=== PATIENT | female | born 1955 | race Caucasian/White ===

== ENCOUNTER 2016-06-24 10:24 | Day surgery (SDC) | payer OTHER, MEDICARE ==
[~2016-06-24] VITALS: Ht 170.2 cm; Wt 91.0 kg
[2016-06-24] VITALS (21 sets, daily range): BP systolic 119–158; BP diastolic 60–97; PULSE 62–74; RESP 8–23; Ht 170.2 cm; Wt 91.0 kg
[~2016-06-24 10:24] MED LIST: BUSP15TA3 PO; CHOL20002 PO; CLON0.5T4 PO; CRES10 PO; DEXL60CA2 PO; GABA300C16 PO; LEVO175T6 PO; LUN2 PO
[2016-06-24] MEDS ORDERED: ASPI-799 PO (11:22)
[2016-06-24] MEDS ORDERED: ATOR40TA68 PO (11:31)
[2016-06-24] MEDS ORDERED: SERT-165 PO (11:31)
[2016-06-24] MEDS ORDERED: CEFT1FRO2 IV (11:31)
[2016-06-24] MEDS ORDERED: SYN1 PO (11:31)
[2016-06-24] MEDS ORDERED: ALPR0.5T6 PO (11:31)
[2016-06-24] MEDS ORDERED: QUET100T32 PO (11:31)
[2016-06-24] MEDS ORDERED: PANT40TA4 PO (11:31)
[2016-06-24] MEDS ORDERED: CARSR60 PO (11:31)
[2016-06-24] MEDS ORDERED: FURO20TA3 PO (11:31)
[2016-06-24] MEDS ORDERED: FER325 PO (11:31)
[2016-06-24] MEDS ORDERED: ISOS20TA19 PO (11:31)
[2016-06-24] MEDS ORDERED: ALBU2.5V3 NEB (11:31)
[2016-06-24] MEDS ORDERED: CALC600T11 PO (11:31)
[2016-06-24] MEDS ORDERED: IODIXANOL LOCM 100 ML BTL ONE (12:40)
[2016-06-24] MEDS ORDERED: HEPARIN 1000 UNITS/ML 10 ML INJ ONE (12:40)
[2016-06-24] MEDS ORDERED: LIDOCAINE 1% (MDV) 20 ML INJ ONE (12:40)
[2016-06-24] MEDS ORDERED: NITROGLYCERIN (IC) 100 MCG/ML INJ ONE (12:41)
[2016-06-24] MEDS ORDERED: FENTAnyl 50 MCG/ML VIAL ONE (12:41)
[2016-06-24] MEDS ORDERED: VERAPAMIL 5 MG INJ ONE ×2 (12:41→12:46)
[2016-06-24] MEDS ORDERED: SOD CHLORIDE 0.9% 500 ML ONE (12:41)
[2016-06-24] MEDS ORDERED: MIDAZOLAM 1 MG/ML 2 ML INJ ONE (12:41)
[2016-06-24] MEDS ORDERED: ONDANSETRON 4 MG INJ IV PRN ×2 (14:00→14:30)
[2016-06-24] MEDS ORDERED: ACETAMINOPHEN 325 MG TAB PO PRN ×2 (14:00→14:30)
[2016-06-24] MEDS ORDERED: SOD CHLORIDE 0.9% 1,000 ML IV SCH (14:00)
[2016-06-24] MEDS ORDERED: morphine 2 MG INJ IV PRN ×2 (14:00→14:30)
[2016-06-24] MEDS ORDERED: AL HYDROX/MG HYDROX/SIMETH 30 ML CUP PO PRN ×2 (14:00→14:30)
--- NOTE | 2016-06-24 18:46 | CARRPT ---
DATE OF PROCEDURE: 06/24/2016 TYPE OF PROCEDURE: 1. Left heart catheterization. 2. Coronary angiography. 3. Measurement of left ventricular end diastolic pressure. ATTENDING PHYSICIAN: Fred Inman MD REFERRING PHYSICIAN: ____ and Loc Yu MD INDICATION: Dyspnea on exertion, abnormal cardiac stress test revealing anterior apical ischemia. TYPE OF ANESTHESIA: Conscious and local. BRIEF HISTORY AND HOSPITAL COURSE: Ms. Love is a 61-year-old female with history of hypertension , dyslipidemia, chronic obstructive pulmonary disease, ongoing tobacco usage, who initially presente d with complaints of dyspnea on exertion. The patient subsequently underwent a 2D echo revealing a preserved EF and was ruled out for myocardial infarction. The patient underwent cardiac stress test revealing a preserved EF, but anteroapical ischemia. Given these findings, the patient referred fo r and presents today in order to undergo left heart catheterization to assess for the possibility of significant obstructive coronary artery disease lending to symptoms of chest pain and subsequent po sitive stress test findings. PROCEDURE: After informed consent was obtained, the patient was brought to the [facility] cardiac catheterization lab where her right radial area was prepped and draped in usual michael rile fashion. Lidocaine 2% was infiltrated into the right radial area in order to achieve adequate anesthesia. Using modified Seldinger technique, the right radial artery was cannulated and a 6-Fren ch arterial sheath was placed. A 6-Kinyarwanda JL3.5 catheter was used to cannulate the left main carrera ry ostium. With contrast injection, multiple views of the left coronary arterial system were obtain ed. JL3.5 removed over the guidewire and a JR4 was used to cannulate the right coronary arterial os tium. With contrast injection, multiple views of the right coronary system were obtained. JL4 was removed over a guidewire and a 6-Kinyarwanda pigtail was passed down the ascending aorta into the left ve ntricle where left ventricular end-diastolic pressure was measured. It was then pulled back across the aortic valve to assess for significant gradient, which there was none, and removed. Subsequentl y, this completed the procedure. The patient's radial sheath was removed and TR band applied. Ther e were no noted complications. FINDINGS: 1. Coronary angiography: Left main 4.5 mm, no significant stenoses. Circumflex proximally is a 3 mm vessel, no significant focal stenoses. There is a mid branching obtuse marginal, a 3 mm vessel w ith a mid body 20% tubular stenosis. The LAD proximally is a 4 mm vessel and in its mid portion has approximately a 40% stenosis. There is a proximal branching diagonal, 2 mm, no significant focal s tenoses. The right coronary artery proximally is a 4 mm vessel and has no significant focal stenosi s throughout its entirety. It is dominant vessel, gives off a 3 mm PDA and a 3 mm posterolateral br anch, each with no significant focal stenoses. TOTAL FLUOROSCOPY TIME: 3.5 minutes. TOTAL CONTRAST: 30 mL. IMPRESSION: 1. Moderate to nonobstructive coronary artery disease. 2. High normal left heart filling pressures with left ventricular diastolic pressure of 27. 3. No significant aortic stenosis by gradient. RECOMMENDATIONS: At this time, in light of the procedure findings would: 1. Maximize medical management. 2. Aggressive risk factor reduction. 3. The patient will be readmitted through the same day surgery center with probable transfer back [facility] this afternoon. ADDENDUM: Measurement of left ventricular diastolic pressure of 26, 27. No significant aortic sten osis by gradient. No LV gram undertaken due to elevated LVEDP. Dictated By: FRED STALLINGS/MINOR Conf#: [id number] DID#: [id number] CC: Alfreda Graham; LOC YU MD;*End*
== END 2016-06-24 17:24 | disposition hospice, inpatient (51) ==
LOC: SDS 10:24
PROVIDERS: ATTEND Internal Medicine
DX: I25.10 Atherosclerotic heart disease of native coronary artery without angina pectoris (principal); R94.39 Abnormal result of other cardiovascular function study; I10 Essential (primary) hypertension; E03.9 Hypothyroidism, unspecified; F41.8 Other specified anxiety disorders
CPT/HCPCS: 93458; C1769; C1887; J1644; J2250; J3010; J7040; Q9967

== ENCOUNTER 2016-08-16 14:24 | Observation (INO) | payer MEDICARE, OTHER ==
[~2016-08-16] VITALS: Ht 170.2 cm; Wt 92.5 kg
[~2016-08-16 14:24] MED LIST changes: +ALBU2.5V3 NEB; +ALPR0.5T6 PO; +ASPI-799 PO; +ATOR40TA68 PO; -BUSP15TA3 PO; +CALC600T11 PO; +CARSR60 PO; +CEFT1FRO2 IV; -CHOL20002 PO; -CLON0.5T4 PO; -CRES10 PO; -DEXL60CA2 PO; +FER325 PO; +FURO20TA3 PO; +ISOS20TA19 PO; +PANT40TA4 PO; +QUET100T32 PO; +SERT-165 PO; +SYN1 PO
[2016-08-16] MEDS ORDERED: FUROSEMIDE 40 MG INJ IV STA (15:37)
[2016-08-16 16:01] LABS: ADD SCAN DIFF NO
[2016-08-16 16:02] LABS: BASOPHILS % 0.2 % (0.0-2.0); EOSINOPHILS # 0.1 10^3/ul (0.0-0.5); EOSINOPHILS % 1.3 % (0.0-7.0); HEMATOCRIT 38.9 % (37.0-47.0); HEMOGLOBIN 12.1 g/dl (12.0-16.0); LYMPHOCYTES % 30.4 % (15.0-51.0); MEAN CORPUSCULAR HEMOGLOBIN 26.4 pg (29.0-33.0); MEAN CORPUSCULAR HGB CONC 31.1 g/dl (32.0-37.0); MEAN CORPUSCULAR VOLUME 84.9 fl (82.0-101.0); MONOCYTE # 0.8 10^3/ul (0.3-0.9); MONOCYTES % 8.4 % (0.0-11.0); NEUTROPHIL # 5.9 10^3/ul (1.6-7.5); NEUTROPHILS % 59.6 % (39.0-77.0); PLATELET COUNT 392 10^3/UL (140-415); RED BLOOD COUNT 4.58 10^6/ul (4.20-5.40); RED CELL DISTRIBUTION WIDTH 17.3 % (11.5-14.5)
[2016-08-16 16:21] LABS: ALBUMIN 3.7 g/dl (3.3-4.9); CHLORIDE 106 mmol/L (97-110); POTASSIUM 3.6 mmol/L (3.5-5.1); SODIUM 142 mmol/L (135-144)
[2016-08-16 16:23] LABS: ANION GAP 14 (8-16); BILIRUBIN,INDIRECT 0.5 mg/dl (0-1.1); BILIRUBIN,TOTAL 0.5 mg/dl (0.2-1.3); CARBON DIOXIDE 26 mmol/L (21-31); CREATININE 0.78 mg/dl (0.44-1.00)
[2016-08-16 16:24] LABS: ALANINE AMINOTRANSFERASE 49 IU/L (13-69); ALBUMIN/GLOBULIN RATIO 1.19; ALKALINE PHOSPHATASE 85 IU/L (42-121); ASPARTATE AMINO TRANSFERASE 25 IU/L (15-46); BLOOD UREA NITROGEN 17 mg/dl (7-20); GLUCOSE 103 mg/dl (70-220); TOTAL PROTEIN 6.8 g/dl (6.1-8.1)
[2016-08-16] MEDS ORDERED: FER325 PO (16:26)
[2016-08-16] MEDS ORDERED: LEVO125T75 PO (16:27)
[2016-08-16] MEDS ORDERED: LEVO150T67 PO (16:27)
[2016-08-16] MEDS ORDERED: SERT-165 PO (16:28)
[2016-08-16] MEDS ORDERED: OMEP40CA6 PO (16:29)
[2016-08-16] MEDS ORDERED: POTA10TA37 PO (16:35)
[2016-08-16] MEDS ORDERED: DICL75TA2 PO (16:35)
--- NOTE | 2016-08-16 16:45 | RADRPT ---
PROCEDURE: XR Chest. CLINICAL INDICATION: Chest Pain. TECHNIQUE: Single frontal chest x-ray. COMPARISON: None. FINDINGS: The lungs are clear of acute infiltrates, edema, effusions, or masses.. Cardiomegaly is present.. T he osseous structures are intact. IMPRESSION: No acute cardiopulmonary disease. Cardiomegaly. RPTAT: HH .Cooper Hare MD, MD Date Time Electronically viewed and signed by .Cooper Hare MD, MD on 08/16/2016 16:45 .L/
[2016-08-16 16:50] LABS: B-TYPE NATRIURETIC PEPTIDE 190 PG/ML (0-125)
[2016-08-16 16:56] LABS: TROPONIN-I < 0.012 ng/ml (0.00-0.12)
--- NOTE | 2016-08-16 17:30 | CONS ---
DATE OF ADMISSION: 08/16/2016 DATE OF CONSULTATION: 08/16/2016 REASON FOR CONSULTATION: Lower extremity edema, assess for congestive heart failure, shortness of b reath. REQUESTING PHYSICIAN: Emergency department, Dr. Pacheco. HISTORY OF PRESENT ILLNESS: Ms. Love is a 61-year-old female well known to myself from prior h ospital admissions, primary office patient with a history of dyslipidemia, congestive heart failure with preserved left ventricular ejection fraction by echo June 2016, coronary artery disease, nonob structive by catheterization in June 2016, hypothyroidism, psychiatric disorder, who presents with complaints of worsening lower extremity edema for approximately 2 to 3 weeks, associated shortness o f breath and possible symptoms of orthopnea. Upon arrival in the emergency department, temperature 98.1, blood pressure 144/70, pulse 90, respiratory rate 18, saturating 95%. The patient's labs reve aled white count 10, hemoglobin 12.1, platelet count 392. Sodium 142, potassium 3.6, creatinine 0.7 , BUN 17. Troponin negative. BNP of 190. The patient underwent a chest x-ray revealing no acute c ardiopulmonary disease or cardiomegaly. The patient was treated with Lasix 40 mg IV x1 and now awai ts admit to the hospital. The patient at this time denies chest pain, palpitations, syncope. PAST MEDICAL HISTORY: As above in HPI. MEDICATIONS PRIOR TO ADMIT: 1. Ferrous sulfate. 2. Atorvastatin 40 mg at bedtime. 3. Isordil 20 mg p.o. t.i.d. 4. Xanax p.r.n. 5. Diclofenac. 6. Seroquel. 7. Zoloft 20 mg daily. 8. Lasix 20 mg daily. 9. Potassium chloride 10 mEq daily. 10. Omeprazole 40 mg daily. 11. Synthroid 150 mcg daily. ALLERGIES: NO KNOWN DRUG ALLERGIES. SOCIAL HISTORY: No tobacco, ETOH or illicit drug use. FAMILY HISTORY: No history of sudden cardiac or early CAD. REVIEW OF SYSTEMS: As above in HPI. CONSTITUTIONAL: No fevers, chills. PULMONARY: Shortness of breath. CARDIOVASCULAR: History of congestive heart failure. GASTROINTESTINAL: No vomiting. GENITOURINARY: No hematuria. MUSCULOSKELETAL: Degenerative joint disease. PSYCHIATRIC: The patient denies depression. NEUROLOGIC: No documented history of CVA. PHYSICAL EXAMINATION VITAL SIGNS: Temperature of 98.1, blood pressure 144/70, pulse 90, respiratory rate 18, saturating 95%. GENERAL: The patient is alert, awake, in no acute distress. NECK: JVP approximately 9 cm of water. CHEST: Fair air movement throughout. HEART: Regular rate and rhythm. Normal S1, S2, I/ systolic murmur, nondisplaced PMI. ABDOMEN: Positive bowel sounds, soft. EXTREMITIES: 1 to 2+ edema bilaterally at the ankles, 1+ pulses bilaterally, posterior tibial. LABORATORY DATA: As above in HPI. No further labs for my review at this time. IMAGING STUDIES: As above in HPI. No further imaging studies for my review at this time. ECG: Reveals normal sinus rhythm, rate of 88, normal axis, normal intervals, isolated Q in III. IMPRESSION: 1. Lower extremity edema, assess for congestive heart failure. 2. Shortness of breath, assess for congestive heart failure. 3. Coronary artery disease, nonobstructive by catheterization in June 2016. 4. History of congestive heart failure with preserved left ventricular ejection fraction by echo [facility] 2016. 5. Psychiatric disorder. 6. Hypothyroidism. RECOMMENDATIONS: 1. At this time, would admit patient to telemetry monitoring to follow rhythm and rate control clos adriana. 2. Would initiate the patient on standing Lasix diuresis, following strict I's and O's, creatinine to grade diuresis closely. 3. Check a lower extremity venous ultrasound to rule out any DVT that may be associated with any lo wer extremity edema. 4. Would check serial EKGs, assess for ongoing changes and complete a rule out for myocardial infar ction, assure the patient's EKG abnormalities are chronic in nature and not due to any recent acute coronary syndrome lending to lower extremity edema, possible congestive heart failure. 5. Check a BNP to further assess patient's current volume status and will initiate patient on a low dose NIA inhibitor for afterload reduction. Thank you for allowing me to take part in the care of this patient. I will continue to follow her v robb closely with you with further recommendations to be made as the patient progresses through her i npatient hospital course. Dictated By: FRED STALLINGS/MINOR Conf#: [id number] DID#: [id number] CC: BOB PACHECO DO;*End*
--- NOTE | 2016-08-16 18:18 | ERA ---
ER Documentation Chief Complaint Date/Time DATE: 08/16/16 TIME: 18:14 Chief Complaint B/L LEG SWELLING X 2 WEEKS , SOB ON EXERTION HPI This is a 61-year-old female complains of bilateral lower extremity swelling over the past 2-3 weeks after hospital admission and cardiac catheterization that resulted in diffuse coronary artery disease with a normal ejection fraction at that time. She says since she has been home she is having worsening of bilateral lower extremity edema with some dyspnea on exertion and starting to get orthopnea. Patient has COPD and has a chronic cough. She has no chest pain on exertion or at rest. She has no pain in her calves no sudden shortness of breath no palpitations dizziness or syncope. Her thermoscrew operator is Dr. Inman ROS All systems reviewed and are negative except as per history of present illness. Medications Home Meds Reported Medications Diclofenac Sodium* (Diclofenac Sodium*) 75 Mg Tablet.dr, 75 MG PO BID, #60 TAB 08/16/16 Potassium Chloride* (K-Dur*) 10 Meq Tab.prt.sr, 10 MEQ PO DAILY, TAB 08/16/16 Omeprazole* (Omeprazole*) 40 Mg Capsule.dr, 40 MG PO AC BREAKFAST, #30 CAP 08/16/16 Sertraline Hcl* (Sertraline Hcl*) 100 Mg Tablet, 200 MG PO DAILY, #60 TAB 08/16/16 Levothyroxine Sodium* (Levothyroxine Sodium*) 125 Mcg Tablet, 125 MCG PO BEFORE BREAKFAST, #30 TAB 08/16/16 Levothyroxine Sodium* (Levothyroxine Sodium*) 150 Mcg Tablet, 150 MCG PO BEFORE BREAKFAST, #30 TAB 08/16/16 Ferrous Sulfate* (Ferrous Sulfate*) 325 Mg Tabec, 325 MG PO QID, TAB 08/16/16 Alprazolam* (Alprazolam*) 0.5 Mg Tablet, 0.5 MG PO QHS Y for ANXIETY, TAB 06/24/16 Quetiapine Fumarate* (Quetiapine Fumarate*) 100 Mg Tablet, 100 MG PO HS, TAB 06/24/16 Isosorbide Dinitrate* (Isosorbide Dinitrate*) 20 Mg Tablet, 20 MG PO TID, TAB 06/24/16 Furosemide* (Furosemide*) 20 Mg Tablet, 20 MG PO DAILY, #60 TAB 06/24/16 Atorvastatin* (Atorvastatin*) 40 Mg Tablet, 40 MG PO QHS, #30 TAB 06/24/16 Discontinued Reported Medications Albuterol Sulfate* (Albuterol Sulfate* Neb) 0.083%-3 Ml Neb, 2.5 MG NEB Q6, #30 VIAL 06/24/16 Pantoprazole* (Pantoprazole*) 40 Mg Tablet.dr, 40 MG PO DAILY, TAB 06/24/16 Levothyroxine Sodium* (Synthroid*) 100 Mcg Tablet, 200 MCG PO BEFORE BREAKFAST, #30 TAB 06/24/16 Diltiazem Hcl* (Cardizem SR*) 60 Mg Capsr, 30 MG PO Q8, #60 CAP 06/24/16 Ceftriaxone Na/Dextrose,Iso (Ceftriaxone 1 gm Piggyback) 1 Gm/50 Ml Froz.piggy, 1 GM IV Q24 06/24/16 Calcium Carbonate* (Calcium Carbonate*) 600 MG Ca Tab, 500 MG PO, TAB 06/24/16 Aspirin/Calcium Carbonate/Mag (Aspirin Buffered) 325 Mg Tablet, 325 MG PO DAILY , TAB 06/24/16 Eszopiclone (Lunesta) 2 Mg Tab, 2 MG PO HS Y 08/11/12 Levothyroxine Sodium* (Levothyroxine Sodium*) 175 Mcg Tablet, 175 MCG PO DAILY 08/11/12 Gabapentin* (Gabapentin*) 300 Mg Capsule, 900 MG PO TID 08/11/12 Allergies Allergies: Coded Allergies: No Known Allergy (Unverified , 06/24/16) PMhx/Soc Anesthesia Reaction: No Hx Neurological Disorder: No Hx Respiratory Disorders: Yes (COPD) Hx Cardiac Disorders: Yes (HTN, HYPERLIPIDEMIA) Hx Psychiatric Problems: No Hx Miscellaneous Medical Probl: No Hx Alcohol Use: No Hx Substance Use: No Hx Tobacco Use: Yes (HALF A PACK/DAY) FmHx Family History: No coronary disease Physical Exam Vitals Vital Signs Date Time Temp Pulse Resp B/P Pulse Ox O2 Delivery O2 Flow Rate FiO2 08/16/16 15:59 Nasal Cannula 1 08/16/16 14:29 98.1 90 18 144/70 95 Physical Exam Const: Well-developed, well-nourished Head: Atraumatic, normocephalic Eyes: Normal Conjunctiva, PERRLA, EOMI, normal sclera, no nystagmus ENT: Normal External Ears, Nose and Mouth, moist mucus membranes. Neck: Full range of motion. No meningismus, no lymphadenopathy. Resp: Clear to auscultation bilaterally, no wheezing, rhonchi, rales Cardio: Regular rate and rhythm, no murmurs, S1 S2 present Abd: Soft, non tender x 4, non distended. Normal bowel sounds, no guarding or rebound, no pulsitile abdominal masses or bruits Skin: No petechiae or rashes, no ecchymosis , maculopapular rash to the bottom of both feet Back: No midline or flank tenderness Ext: No cyanosis, +3 edema to the midshin bilaterally, FROM x 4, normal inspection, neurovascularly intact x 4 Neur: Awake and alert, STR 5/5 x 4, sensation intact x 4, no focal findings, cerebellum intact Psych: Normal Mood and Affect Result Diagram: 08/16/16 1545 08/16/16 1545 Results 24 hrs Laboratory Tests Test 08/16/16 15:45 White Blood Count 10.010^3/ul Red Blood Count 4.5810^6/ul Hemoglobin 12.1g/dl Hematocrit 38.9% Mean Corpuscular Volume 84.9fl Mean Corpuscular Hemoglobin 26.4pg Mean Corpuscular Hemoglobin Concent 31.1g/dl Red Cell Distribution Width 17.3% Platelet Count 73425^3/UL Mean Platelet Volume 10.0fl Neutrophils % 59.6% Lymphocytes % 30.4% Monocytes % 8.4% Eosinophils % 1.3% Basophils % 0.2% Nucleated Red Blood Cells % 0.0/100WBC Neutrophils # 5.910^3/ul Lymphocytes # 3.010^3/ul Monocytes # 0.810^3/ul Eosinophils # 0.110^3/ul Basophils # 0.010^3/ul Nucleated Red Blood Cells # 0.010^3/ul Sodium Level 142mmol/L Potassium Level 3.6mmol/L Chloride Level 106mmol/L Carbon Dioxide Level 26mmol/L Anion Gap 14 Blood Urea Nitrogen 17mg/dl Creatinine 0.78mg/dl Glucose Level 103mg/dl Calcium Level 9.0mg/dl Total Bilirubin 0.5mg/dl Direct Bilirubin 0.00mg/dl Indirect Bilirubin 0.5mg/dl Aspartate Amino Transf (AST/SGOT) 25IU/L Alanine Aminotransferase (ALT/SGPT) 49IU/L Alkaline Phosphatase 85IU/L Troponin I < 0.012ng/ml B-Type Natriuretic Peptide 190PG/ML Total Protein 6.8g/dl Albumin 3.7g/dl Globulin 3.10g/dl Albumin/Globulin Ratio 1.19 Current Medications Medications (Trade) Dose Ordered Sig/Joyce Route PRN Reason Start Time Stop Time Status Last Admin Dose Admin Furosemide (Lasix) 40 mg ONCE STAT IV 08/16/16 15:37 08/16/16 15:38 DC 08/16/16 15:51 Procedures/MDM EKG: Rate/Rhythm: Normal Sinus Rhythm,NL intervals QRS, ST, QT: NORMAL WA, QRS, QT] Impression: NORMAL EKG PROCEDURE: XR Chest. CLINICAL INDICATION: Chest Pain. TECHNIQUE: Single frontal chest x-ray. COMPARISON: None. FINDINGS: The lungs are clear of acute infiltrates, edema, effusions, or masses.. Cardiomegaly is present.. The osseous structures are intact. IMPRESSION: No acute cardiopulmonary disease. Cardiomegaly. RPTAT: HH .Cooper Hare MD, MD Date Time Electronically viewed and signed by .Cooper Hare MD, MD on 08/16/2016 16:45 .L/ CC: ZACHARIAHDAWNABOB DO Patient received 40 mg of IV Lasix. She was seen by Dr. Inman in the emergency department. I will admit the patient for workup for congestive heart failure. No signs of liver or renal disease currently. Spoke with Dr. Levin for admission Departure Diagnosis: Primary Impression: Pedal edema Additional Impression: Dyspnea on exertion Condition: Stable BOB FARIA DO Aug 16, 2016 18:17
[2016-08-16] MEDS ORDERED: ONDANSETRON 4 MG INJ IV PRN (18:30)
[2016-08-16] MEDS ORDERED: ACETAMINOPHEN 325 MG TAB PO PRN (18:30)
--- NOTE | 2016-08-16 18:34 | RADRPT ---
PROCEDURE: US bilateral lower extremity veins. CLINICAL INDICATION: Bilateral leg pain and swelling. TECHNIQUE: Multiple longitudinal and transverse images of the bilateral lower extremity veins were obtained with fernando scale and color Doppler imaging. The common femoral vein, femoral vein, and popl iteal vein were evaluated. 2D grayscale measurements with compression sonography, color Doppler, and pulsed Doppler with augmentation. COMPARISON: No prior studies are available for comparison. FINDINGS: The bilateral common femoral, femoral and popliteal veins are normally compressible throughout. Col or flow demonstrates normal filling of the vessels. Normal waveforms are visualized and there is no rmal response to augmentation. IMPRESSION: 1. No evidence of deep vein thrombosis involving either lower extremity. RPTAT: QQ .Arnaud Brennan MD, MD Date Time Electronically viewed and signed by .Arnaud Brennan MD, on 08/16/2016 18:34 .R/
[2016-08-16 22:07] VITALS: PULSE 79
[2016-08-16 22:35] VITALS: Ht 170.2 cm; Wt 92.5 kg
[2016-08-16 23:08] VITALS: BP 147/65; RESP 20
[2016-08-17] VITALS (12 sets, daily range): BP systolic 120–145; BP diastolic 56–74; PULSE 70–82; RESP 17–20
[2016-08-17] MEDS ORDERED: hydrALAzine 20 MG INJ IV PRN (00:30)
--- NOTE | 2016-08-17 03:20 | HP ---
DATE OF ADMISSION: 08/16/2016 CHIEF COMPLAINT: Lower extremity swelling and shortness of breath. 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 She denied any chest pain, orthopnea, or PND. No nausea, vomiti ng, fever, or chills. She stated she has been compliant with her medications, including 20 mg Lasix that she has been taking daily. The patient had a left heart catheterization in June of this year with a finding of moderate nonobstructive coronary artery disease. Her ejection fraction was prese rved. When the patient presented to the ER, blood pressure was 144/70, heart rate 90, respiratory rate 18, temperature 98.1, oxygen saturation 95% on room air. Chest x-ray shows cardiomegaly but otherwise clear lungs. Her basic labs were within acceptable range. The patient has already been seen by Dr. Inman, her blender snuff. The patient also had a lower extremity venous study, and she was ruled out for DVT. She was given 40 mg of IV Lasix while she was in the ER. REVIEW OF SYSTEMS: A 12-point review was performed and negative except as mentioned in HPI. PAST MEDICAL HISTORY: As per HPI. SOCIAL HISTORY: Denied a history of tobacco, alcohol, or illicit drug use. ALLERGIES: NO KNOWN DRUG ALLERGIES. HOME MEDICATIONS: 1. Ferrous sulfate. 2. Lipitor. 3. Isosorbide dinitrate. 4. Xanax. 5. Diclofenac. 6. Quetiapine. 7. Sertraline. 8. Furosemide. 9. Potassium. 10. Prilosec. 11. Synthroid. PHYSICAL EXAMINATION: VITAL SIGNS: Stable. GENERAL: No acute distress. She actually looks comfortable. HEENT: No obvious head deformity. Pupils are reactive to light. Extraocular muscles intact. CARDIOVASCULAR: Regular rate and rhythm. No extra sounds. LUNGS: Clear. ABDOMEN: Soft, nontender, nondistended. Positive bowel sounds. EXTREMITIES: She has 2+ bilateral lower extremity pitting edema. LABORATORY DATA: CBC and CMP within normal limits. IMAGING: Chest x-ray shows cardiomegaly, otherwise clear lungs. IMPRESSION: 1. Bilateral lower extremity pitting edema, likely congestive heart failure exacerbation. 2. History of nonobstructive coronary artery disease. 3. Hypothyroidism. 4. Hypertension. 5. Chronic obstructive pulmonary disease. 6. History of bladder cancer. 7. History of gastritis/gastroesophageal reflux disease. 8. History of depression/anxiety. PLAN: Continue telemetry monitoring. Continue IV diuresis. We will continue her home medications with adjustment as needed. The patient has already been seen by cardiology and will follow up recom mendations. The patient does have a history of COPD, but shortness of breath seems likely secondary to volume overloaded state and does not appear to be related to her COPD. The patient will receive breathing treatment as needed, and we will add steroid as needed based on clinical course. Further workup and management per clinical course. Dictated By: KASIA GATES/MINOR Conf#: [id number] DID#: [id number]
[2016-08-17] MEDS ORDERED: FUROSEMIDE 40 MG TAB PO ONE ×2 (10:00→17:00)
[2016-08-17] MEDS ORDERED: ALPRAZOLAM 0.5 MG TAB PO PRN (10:00)
--- NOTE | 2016-08-17 10:01 | PN ---
Date/Time of Note Date/Time of Note DATE: 08/17/16 TIME: 09:55 Assessment/Plan VTE Prophylaxis VTE Prophylaxis Intervention: heparin Lines/Catheters IV Catheter Type (from [facility]): Saline Lock Assessment/Plan Problems: (1) Osteoarthritis Status: Chronic Comment: Continue nonsteroidal anti-inflammatory drug. Adjust medications to compensate for fluid retention Qualifiers: Osteoarthritis location: multiple joints Osteoarthritis type: primary Qualified Code: M15.0 - Primary osteoarthritis involving multiple joints (2) Diastolic dysfunction with acute on chronic heart failure Status: Chronic Comment: This is a situation where I would use most cardioselective beta- jeannie possible to deal with the diastolic dysfunction (3) Acquired hypothyroidism Status: Chronic Comment: Continue levothyroxine replacement therapy (4) Hyperlipidemia Status: Chronic Comment: Noted statin therapy Qualifiers: Hyperlipidemia type: pure hypercholesterolemia Qualified Code: E78.00 - Pure hypercholesterolemia (5) Hemorrhoids Status: Chronic Comment: Noted no intervention necessary Qualifiers: Hemorrhoid type: first degree Qualified Code: K64.0 - First degree hemorrhoids (6) Gastroesophageal reflux disease Status: Chronic Comment: Noted continue proton pump inhibitor therapy Qualifiers: Esophagitis presence: with esophagitis Qualified Code: K21.0 - Gastroesophageal reflux disease with esophagitis (7) Obesity (BMI 30.0-34.9) Status: Chronic Comment: Counseled gently (8) Dysthymia (or depressive neurosis) Status: Chronic Comment: Continue medication therapy. Please note or modestly handicapped as the medication reconciliation done in the emergency room does not appear to be accurate. (9) COPD (chronic obstructive pulmonary disease) Status: Chronic Comment: The patient reports that she is on inhaler therapy even though this is not on the medication reconciliation. I will go ahead and put her on treatment as it makes sense that she has this. Please note I also suspect that in addition she has obstructive sleep apnea. Qualifiers: COPD type: unspecified COPD Qualified Code: J44.9 - Chronic obstructive pulmonary disease, unspecified COPD type Subjective 24 Hr Interval Summary Free Text/Dictation Charming Taj[place] woman lying in bed. She reports that she is feeling significantly better than when she came in. Constitutional: no complaints (Denies fevers chills or sweats) Eyes: no complaints ENT: no complaints Respiratory: no complaints (Shortness of breath resolved. We have not checked for dyspnea on exertion), other (Denies known snoring C exam) Cardiovascular: no complaints (No chest pain palpitations no PND) Gastrointestinal: no complaints Genitourinary: no complaints Neurologic: no complaints Exam/Review of Systems Vital Signs Vitals Vital Signs Date Time Temp Pulse Resp B/P Pulse Ox O2 Delivery O2 Flow Rate FiO2 08/17/16 08:05 81 08/17/16 07:51 97.9 18 139/63 95 08/16/16 22:54 Nasal Cannula 2.0 Exam Initially sleeping in bed snoring with apneic spells Constitutional: alert, oriented Neck: non-tender, supple Respiratory: clear to auscultation, normal air movement Cardiovascular: nl pulses, regular rate and rhythm Extremities: edema (2+ edema) Results Result Diagram: 08/16/16 1545 08/16/16 1545 Results 24 hrs Laboratory Tests Test 08/16/16 15:45 White Blood Count 10.0 Red Blood Count 4.58 Hemoglobin 12.1 Hematocrit 38.9 Mean Corpuscular Volume 84.9 Mean Corpuscular Hemoglobin 26.4 L Mean Corpuscular Hemoglobin Concent 31.1 L Red Cell Distribution Width 17.3 H Platelet Count 392 Mean Platelet Volume 10.0 Neutrophils % 59.6 Lymphocytes % 30.4 Monocytes % 8.4 Eosinophils % 1.3 Basophils % 0.2 Nucleated Red Blood Cells % 0.0 Neutrophils # 5.9 Lymphocytes # 3.0 H Monocytes # 0.8 Eosinophils # 0.1 Basophils # 0.0 Nucleated Red Blood Cells # 0.0 Sodium Level 142 Potassium Level 3.6 Chloride Level 106 Carbon Dioxide Level 26 Anion Gap 14 Blood Urea Nitrogen 17 Creatinine 0.78 Glucose Level 103 Calcium Level 9.0 Total Bilirubin 0.5 Direct Bilirubin 0.00 Indirect Bilirubin 0.5 Aspartate Amino Transf (AST/SGOT) 25 Alanine Aminotransferase (ALT/SGPT) 49 Alkaline Phosphatase 85 Troponin I < 0.012 B-Type Natriuretic Peptide 190 H Total Protein 6.8 Albumin 3.7 Globulin 3.10 Albumin/Globulin Ratio 1.19 Medications Medications Current Medications Hydralazine HCl (Apresoline) 10 mg Q4H PRN IV ELEVATED BLOOD PRESSURE>150; Start 08/17/16 at 00:30 Alprazolam (Xanax) 0.5 mg QHS PRN PO ANXIETY; Start 08/17/16 at 10:00 Atorvastatin Calcium (Lipitor) 40 mg QHS PO ; Start 08/17/16 at 21:00 Diclofenac Sodium (Voltaren) 75 mg BID PO ; Start 08/17/16 at 21:00 Ferrous Sulfate (Ferrous Sulfate (Ec)) 325 mg QID PO ; Start 08/17/16 at 13:00 Quetiapine Fumarate (Seroquel) 100 mg HS PO ; Start 08/17/16 at 21:00 Sertraline HCl (Zoloft) 200 mg DAILY PO ; Start 08/18/16 at 09:00 Furosemide (Lasix) 40 mg DAILY PO ; Start 08/18/16 at 09:00; Status UNV Furosemide (Lasix) 40 mg ONCE ONCE PO ; Start 08/17/16 at 10:00; Stop 08/17/16 at 10:01; Status UNV Spironolactone (Aldactone) 25 mg DAILY PO ; Start 08/17/16 at 10:00; Status UNV Salmeterol Xinafoate/ Fluticasone (Advair 250/50 Diskus) 1 inh BID INH ; Start 08/17/16 at 10:00; Status UNV Tiotropium [place] (Spiriva) 1 inh DAILY INH ; Start 08/17/16 at 10:00; Status UNV ISRRAEL TOM MD Aug 17, 2016 10:01
[2016-08-17] MEDS: TIOTROPIUM 18 MCG CAPSULE INHA DEV INH SCH (10:55)
[2016-08-17] MEDS: SPIRONOLACTONE 25 MG TAB PO SCH (10:55)
[2016-08-17] MEDS: METOPROLOL (XL) 25 MG TAB PO SCH (10:56)
[2016-08-17] MEDS: SALMETEROL/FLUTICASONE 250/50 INHA INH SCH ×2 (10:56→21:35)
[2016-08-17] MEDS: HEPARIN 5,000 UNIT/0.5 ML VIAL SC SCH ×2 (10:57→21:40)
[2016-08-17] MEDS ORDERED: ADV25050 INHALATION (11:52)
[2016-08-17] MEDS ORDERED: LEVO300T5 PO (11:52)
[2016-08-17] MEDS ORDERED: CHOL400T10 PO (11:52)
[2016-08-17] MEDS ORDERED: CHOL100062 PO (11:56)
[2016-08-17] MEDS: FERROUS SULFATE (EC) 325 MG TAB PO SCH ×3 (13:47→21:35)
--- NOTE | 2016-08-17 15:35 | CONS ---
Date/Time of Note Date/Time of Note DATE: 08/17/16 TIME: 15:28 Assessment/Plan Assessment/Plan Chief Complaint/Hosp Course IMPRESSION: 1. Lower extremity edema, assess for congestive heart failure.-improving with lasix diuresis 2. Shortness of breath, assess for congestive heart failure. 3. Coronary artery disease, nonobstructive by catheterization in June 2016. 4. History of congestive heart failure with preserved left ventricular ejection fraction by echo June 2016. Thus diastolic acute on chronic 5. Psychiatric disorder. 6. Hypothyroidism. 7.COPD-ongoing tobacco intake Recc: -Tele -serial ecg's -Continue lasix diuresis -Ok to continue BB for now but follow for any possible worsening resp status/ bronchospasm -Continue advair/spiriva and follow resp status closely Problems: Consultation Date/Type/Reason Admit Date/Time Aug 16, 2016 at 18:13 Initial Consult Date 08/17/2016 Type of Consultation: Cardiology Reason for Consultation CHF/Le edema Referring Provider: KASIA PAL MD Exam/Review of Systems Vital Signs Vitals Vital Signs Date Time Temp Pulse Resp B/P Pulse Ox O2 Delivery O2 Flow Rate FiO2 08/17/16 12:28 98.9 74 17 137/61 92 08/16/16 22:54 Nasal Cannula 2.0 Exam Review of Systems: CONSTITUTIONAL: No fevers, chills. PULMONARY: mild sob-improving CARDIOVASCULAR: No chest pain/palpitations GASTROINTESTINAL: No nausea/vomiting. GENITOURINARY: No hematuria/dysuria. MUSCULOSKELETAL: No myagias/arthalgias. PSYCHIATRIC: The patient denies depression. NEUROLOGIC: No weakness Constitutional: alert, oriented Psych: no complaints Head: normocephalic ENMT: mucosa pink and moist Neck: jvd (9 cm water), supple Respiratory: clear to auscultation Cardiovascular: regular rate and rhythm Gastrointestinal: non-tender, soft Musculoskeletal: muscle tone (normal) Extremities: edema (improved bilateral) Neurological: other (No focal deficits) Results Result Diagram: 08/16/16 1545 08/16/16 1545 Results 24 hrs Laboratory Tests Test 08/16/16 15:45 White Blood Count 10.0 Red Blood Count 4.58 Hemoglobin 12.1 Hematocrit 38.9 Mean Corpuscular Volume 84.9 Mean Corpuscular Hemoglobin 26.4 L Mean Corpuscular Hemoglobin Concent 31.1 L Red Cell Distribution Width 17.3 H Platelet Count 392 Mean Platelet Volume 10.0 Neutrophils % 59.6 Lymphocytes % 30.4 Monocytes % 8.4 Eosinophils % 1.3 Basophils % 0.2 Nucleated Red Blood Cells % 0.0 Neutrophils # 5.9 Lymphocytes # 3.0 H Monocytes # 0.8 Eosinophils # 0.1 Basophils # 0.0 Nucleated Red Blood Cells # 0.0 Sodium Level 142 Potassium Level 3.6 Chloride Level 106 Carbon Dioxide Level 26 Anion Gap 14 Blood Urea Nitrogen 17 Creatinine 0.78 Glucose Level 103 Calcium Level 9.0 Total Bilirubin 0.5 Direct Bilirubin 0.00 Indirect Bilirubin 0.5 Aspartate Amino Transf (AST/SGOT) 25 Alanine Aminotransferase (ALT/SGPT) 49 Alkaline Phosphatase 85 Troponin I < 0.012 B-Type Natriuretic Peptide 190 H Total Protein 6.8 Albumin 3.7 Globulin 3.10 Albumin/Globulin Ratio 1.19 Medications Medications Current Medications Hydralazine HCl (Apresoline) 10 mg Q4H PRN IV ELEVATED BLOOD PRESSURE>150; Start 08/17/16 at 00:30 Alprazolam (Xanax) 0.5 mg QHS PRN PO ANXIETY; Start 08/17/16 at 10:00 Diclofenac Sodium (Voltaren) 75 mg BID PO ; Start 08/17/16 at 21:00 Ferrous Sulfate (Ferrous Sulfate (Ec)) 325 mg QID PO Last administered on 13:47; Admin Dose 325 MG; Start 08/17/16 at 13:00 Quetiapine Fumarate (Seroquel) 100 mg HS PO ; Start 08/17/16 at 21:00 Sertraline HCl (Zoloft) 200 mg DAILY PO ; Start 08/18/16 at 09:00 Pantoprazole (Protonix Tab) 40 mg DAILY@06 PO ; Start 08/18/16 at 06:00 Furosemide (Lasix) 40 mg DAILY PO ; Start 08/18/16 at 09:00 Spironolactone (Aldactone) 25 mg DAILY PO Last administered on 08/17/16 10:55 ; Admin Dose 25 MG; Start 08/17/16 at 10:00 Salmeterol Xinafoate/ Fluticasone (Advair 250/50 Diskus) 1 inh BID INH Last administered on 08/17/16 10:56; Admin Dose 1 INH; Start 08/17/16 at 10:00 Tiotropium [place] (Spiriva) 1 inh DAILY INH Last administered on 08/17/16 10: 55; Admin Dose 1 INH; Start 08/17/16 at 10:00 Heparin Sodium (Porcine) (Heparin (5000 Units/0.5 ml)) 5,000 unit BID SC Last administered on 08/17/16 10:57; Admin Dose 5,000 UNIT; Start 08/17/16 at 10:00 Atorvastatin Calcium (Lipitor) 40 mg HS PO ; Start 08/17/16 at 21:00 Metoprolol Succinate (Toprol Xl) 25 mg DAILY PO Last administered on 08/17/16 10:56; Admin Dose 25 MG; Start 08/17/16 at 10:30 FRED JERRY Aug 17, 2016 15:35
[2016-08-17] MEDS ORDERED: ATORVASTATIN 40 MG TAB PO SCH (21:00)
[2016-08-17] MEDS: DICLOFENAC (EC) 75 MG TAB PO SCH (21:35)
[2016-08-17] MEDS: ATORVASTATIN 40 MG TAB PO SCH (21:36)
[2016-08-17] MEDS: QUETIAPINE 100 MG TAB PO SCH (21:48)
[2016-08-17] MEDS ORDERED: ALPRAZOLAM 0.25 MG TAB PO PRN (22:00)
[2016-08-18] VITALS (12 sets, daily range): BP systolic 96–132; BP diastolic 53–74; PULSE 75–94; RESP 18–20
[2016-08-18] MEDS: PANTOPRAZOLE (EC) 40 MG TAB PO SCH (06:31)
[2016-08-18] MEDS: LEVOTHYROXINE 150 MCG TAB PO SCH (06:31)
[2016-08-18] MEDS: DICLOFENAC (EC) 75 MG TAB PO SCH ×2 (08:46→20:55)
[2016-08-18] MEDS: FERROUS SULFATE (EC) 325 MG TAB PO SCH ×4 (08:47→20:55)
[2016-08-18] MEDS: SPIRONOLACTONE 25 MG TAB PO SCH (08:47)
[2016-08-18] MEDS: FUROSEMIDE 40 MG TAB PO SCH (08:47)
[2016-08-18] MEDS: METOPROLOL (XL) 25 MG TAB PO SCH (08:48)
[2016-08-18] MEDS: TIOTROPIUM 18 MCG CAPSULE INHA DEV INH SCH (08:48)
[2016-08-18] MEDS: SALMETEROL/FLUTICASONE 250/50 INHA INH SCH ×2 (08:48→20:54)
[2016-08-18] MEDS: SERTRALINE 100 MG TAB PO SCH (08:48)
[2016-08-18] MEDS: HEPARIN 5,000 UNIT/0.5 ML VIAL SC SCH ×2 (08:49→20:56)
[2016-08-18] MEDS: DOCUSATE SODIUM 100 MG CAP PO SCH ×2 (12:17→20:55)
--- NOTE | 2016-08-18 14:06 | PN ---
Date/Time of Note Date/Time of Note DATE: 08/18/16 TIME: 14:04 Assessment/Plan VTE Prophylaxis VTE Prophylaxis Intervention: heparin Lines/Catheters IV C[facility]ter Type (from [facility] Saline Lock Assessment/Plan Chief Complaint/Hosp Course Assessment 1. Hypoxemic respiratory failure secondary to CHF and possible COPD exacerbation 2. Extensive tobacco history continues to smoke 3. History of essential hypertension 4. History of coronary artery disease with recent catheterization 5. History of psychiatric disorder Plan 1. Continue cardiac recommendations discharge if cleared by Dr. Inman 2. Discussed smoking cessation at length will need outpatient pulmonary follow- up with me 3. Ambulate on room air record oxygenation if O2 sats below 88% require home O2 which patient states she had previously Problems: Subjective 24 Hr Interval Summary Free Text/Dictation Patient better today appears less short of breath states her breathing is slowly improving Exam/Review of Systems Vital Signs Vitals Vital Signs Date Time Temp Pulse Resp B/P Pulse Ox O2 Delivery O2 Flow Rate FiO2 08/18/16 12:21 76 08/18/16 11:28 97.5 20 113/55 94 08/17/16 20:49 Nasal Cannula 2.0 Intake and Output 08/17/16 08/17/16 08/18/16 15:00 23:00 07:00 Intake Total 120 ml 950 ml Output Total 1000 ml 350 ml Balance -880 ml 600 ml Exam GENERAL: Well-nourished well-developed lady comfortable at rest no acute distress VITAL SIGNS: per chart NECK: Supple. No JVD or lymphadenopathy. CARDIAC EXAM: S1, S2. No added sounds or murmurs. CHEST: clear bilaterally, No added sounds, rales or wheezes ABDOMEN: Soft, nontender. No guarding or rebound. EXTREMITIES: No cyanosis, clubbing or edema. NEUROLOGIC: Generalized weakness. No focal deficits. Results Result Diagram: 08/16/16 1545 08/16/16 1545 Medications Medications Current Medications Hydralazine HCl (Apresoline) 10 mg Q4H PRN IV ELEVATED BLOOD PRESSURE>150; Start 08/17/16 at 00:30 Diclofenac Sodium (Voltaren) 75 mg BID PO Last administered on 08/18/16 08:46; Admin Dose 75 MG; Start 08/17/16 at 21:00 Ferrous Sulfate (Ferrous Sulfate (Ec)) 325 mg QID PO Last administered on 12:17; Admin Dose 325 MG; Start 08/17/16 at 13:00 Quetiapine Fumarate (Seroquel) 100 mg HS PO Last administered on 08/17/16 21: 48; Admin Dose 100 MG; Start 08/17/16 at 21:00 Sertraline HCl (Zoloft) 200 mg DAILY PO Last administered on 08/18/16 08:48; Admin Dose 200 MG; Start 08/18/16 at 09:00 Pantoprazole (Protonix Tab) 40 mg DAILY@06 PO Last administered on 08/18/16 06: 31; Admin Dose 40 MG; Start 08/18/16 at 06:00 Furosemide (Lasix) 40 mg DAILY PO Last administered on 08/18/16 08:47; Admin Dose 40 MG; Start 08/18/16 at 09:00 Spironolactone (Aldactone) 25 mg DAILY PO Last administered on 08/18/16 08:47; Admin Dose 25 MG; Start 08/17/16 at 10:00 Salmeterol Xinafoate/ Fluticasone (Advair 250/50 Diskus) 1 inh BID INH Last administered on 08/18/16 08:48; Admin Dose 1 INH; Start 08/17/16 at 10:00 Tiotropium [place] (Spiriva) 1 inh DAILY INH Last administered on 08/18/16 08: 48; Admin Dose 1 INH; Start 08/17/16 at 10:00 Heparin Sodium (Porcine) (Heparin (5000 Units/0.5 ml)) 5,000 unit BID SC Last administered on 08/18/16 08:49; Admin Dose 5,000 UNIT; Start 08/17/16 at 10:00 Atorvastatin Calcium (Lipitor) 40 mg HS PO Last administered on 08/17/16 21:36 ; Admin Dose 40 MG; Start 08/17/16 at 21:00 Metoprolol Succinate (Toprol Xl) 25 mg DAILY PO Last administered on 08/18/16 08:48; Admin Dose 25 MG; Start 08/17/16 at 10:30 Alprazolam (Xanax) 0.5 mg HS PRN PO ANXIETY Last administered on 08/17/16 21: 45; Admin Dose 0.5 MG; Start 08/17/16 at 22:00 Docusate Sodium (Colace) 100 mg BID PO Last administered on 08/18/16t 12:17; Admin Dose 100 MG; Start 08/18/16 at 12:00 TONO CALDERON MD, [facility] August 18, 2016 14:06
--- NOTE | 2016-08-18 18:47 | CONS ---
Date/Time of Note Date/Time of Note DATE: 08/18/16 TIME: 18:44 Assessment/Plan Assessment/Plan Chief Complaint/Hosp Course IMPRESSION: 1. Lower extremity edema, assess for congestive heart failure.-improving with lasix diuresis 2. Shortness of breath, assess for congestive heart failure. 3. Coronary artery disease, nonobstructive by catheterization in June 2016. 4. History of congestive heart failure with preserved left ventricular ejection fraction by echo June 2016. Thus diastolic acute on chronic 5. Psychiatric disorder. 6. Hypothyroidism. 7.COPD-ongoing tobacco intake Recc: -Tele -serial ecg's -Continue lasix diuresis 40 daily for d/c -Continue BB as possible al -Continue advair/spiriva and follow resp status closely -D/C planning with outpatient f/u already scheduled for this month Problems: Consultation Date/Type/Reason Admit Date/Time Aug 16, 2016 at 18:13 Initial Consult Date 08/17/2016 Type of Consultation: Cardiology Reason for Consultation CHF Referring Provider: KASIA PAL MD Exam/Review of Systems Vital Signs Vitals Vital Signs Date Time Temp Pulse Resp B/P Pulse Ox O2 Delivery O2 Flow Rate FiO2 08/18/16 16:21 94 08/18/16 15:47 98.3 20 96/53 92 08/17/16 20:49 Nasal Cannula 2.0 Intake and Output 08/17/16 08/17/16 08/18/16 15:00 23:00 07:00 Intake Total 120 ml 950 ml Output Total 1000 ml 350 ml Balance -880 ml 600 ml Exam Review of Systems: CONSTITUTIONAL: No fevers, chills. PULMONARY: No sob CARDIOVASCULAR: No chest pain/palpitations GASTROINTESTINAL: No nausea/vomiting. GENITOURINARY: No hematuria/dysuria. MUSCULOSKELETAL: No myagias/arthalgias. PSYCHIATRIC: The patient denies depression. NEUROLOGIC: No weakness Constitutional: alert Psych: no complaints ENMT: mucosa pink and moist Neck: jvd (9 cm water), supple Respiratory: clear to auscultation Cardiovascular: regular rate and rhythm Gastrointestinal: non-tender, soft Musculoskeletal: muscle tone Extremities: edema (none) Neurological: other (No focal deficits) Results Result Diagram: 08/16/16 1545 08/16/16 1545 Medications Medications Current Medications Hydralazine HCl (Apresoline) 10 mg Q4H PRN IV ELEVATED BLOOD PRESSURE>150; Start 08/17/16 at 00:30 Diclofenac Sodium (Voltaren) 75 mg BID PO Last administered on 08/18/16 08:46; Admin Dose 75 MG; Start 08/17/16 at 21:00 Ferrous Sulfate (Ferrous Sulfate (Ec)) 325 mg QID PO Last administered on 16:48; Admin Dose 325 MG; Start 08/17/16 at 13:00 Quetiapine Fumarate (Seroquel) 100 mg HS PO Last administered on 08/17/16 21: 48; Admin Dose 100 MG; Start 08/17/16 at 21:00 Sertraline HCl (Zoloft) 200 mg DAILY PO Last administered on 08/18/16 08:48; Admin Dose 200 MG; Start 08/18/16 at 09:00 Pantoprazole (Protonix Tab) 40 mg DAILY@06 PO Last administered on 08/18/16 06: 31; Admin Dose 40 MG; Start 08/18/16 at 06:00 Furosemide (Lasix) 40 mg DAILY PO Last administered on 08/18/16 08:47; Admin Dose 40 MG; Start 08/18/16 at 09:00 Spironolactone (Aldactone) 25 mg DAILY PO Last administered on 08/18/16 08:47; Admin Dose 25 MG; Start 08/17/16 at 10:00 Salmeterol Xinafoate/ Fluticasone (Advair 250/50 Diskus) 1 inh BID INH Last administered on 08/18/16 08:48; Admin Dose 1 INH; Start 08/17/16 at 10:00 Tiotropium [place] (Spiriva) 1 inh DAILY INH Last administered on 08/18/16 08: 48; Admin Dose 1 INH; Start 08/17/16 at 10:00 Heparin Sodium (Porcine) (Heparin (5000 Units/0.5 ml)) 5,000 unit BID SC Last administered on 08/18/16 08:49; Admin Dose 5,000 UNIT; Start 08/17/16 at 10:00 Atorvastatin Calcium (Lipitor) 40 mg HS PO Last administered on 08/17/16 21:36 ; Admin Dose 40 MG; Start 08/17/16 at 21:00 Metoprolol Succinate (Toprol Xl) 25 mg DAILY PO Last administered on 08/18/16 08:48; Admin Dose 25 MG; Start 08/17/16 at 10:30 Alprazolam (Xanax) 0.5 mg HS PRN PO ANXIETY Last administered on 08/17/16 21: 45; Admin Dose 0.5 MG; Start 08/17/16 at 22:00 Docusate Sodium (Colace) 100 mg BID PO Last administered on 08/18/16 12:17; Admin Dose 100 MG; Start 08/18/16 at 12:00 FRED JERRY August 18, 2016 18:47
[2016-08-18] MEDS: ATORVASTATIN 40 MG TAB PO SCH (20:55)
[2016-08-18] MEDS: QUETIAPINE 100 MG TAB PO SCH (20:55)
[2016-08-19] VITALS (9 sets, daily range): BP systolic 112–131; BP diastolic 53–69; PULSE 85–93; RESP 19–20
[2016-08-19] MEDS: PANTOPRAZOLE (EC) 40 MG TAB PO SCH (06:23)
[2016-08-19] MEDS: LEVOTHYROXINE 150 MCG TAB PO SCH (06:24)
[2016-08-19 06:33] LABS: ADD SCAN DIFF NO
[2016-08-19 06:40] LABS: BASOPHILS % 0.5 % (0.0-2.0); EOSINOPHILS # 0.1 10^3/ul (0.0-0.5); EOSINOPHILS % 1.4 % (0.0-7.0); HEMATOCRIT 38.4 % (37.0-47.0); HEMOGLOBIN 11.7 g/dl (12.0-16.0); LYMPHOCYTES # 2.3 10^3/ul (0.8-2.9); LYMPHOCYTES % 36.4 % (15.0-51.0); MEAN CORPUSCULAR HEMOGLOBIN 26.4 pg (29.0-33.0); MEAN CORPUSCULAR HGB CONC 30.5 g/dl (32.0-37.0); MEAN CORPUSCULAR VOLUME 86.7 fl (82.0-101.0); MEAN PLATELET VOLUME 9.9 fl (7.4-10.4); MONOCYTE # 0.7 10^3/ul (0.3-0.9); MONOCYTES % 10.4 % (0.0-11.0); NEUTROPHIL # 3.2 10^3/ul (1.6-7.5); NEUTROPHILS % 51.1 % (39.0-77.0); PLATELET COUNT 357 10^3/UL (140-415); RED BLOOD COUNT 4.43 10^6/ul (4.20-5.40); RED CELL DISTRIBUTION WIDTH 17.2 % (11.5-14.5); WHITE BLOOD COUNT 6.2 10^3/ul (4.8-10.8)
[2016-08-19 06:56] LABS: CALCIUM 8.6 mg/dl (8.4-10.2); CREATININE 0.69 mg/dl (0.44-1.00); PHOSPHORUS 3.9 mg/dl (2.5-4.9); POTASSIUM 3.9 mmol/L (3.5-5.1)
[2016-08-19] MEDS: DICLOFENAC (EC) 75 MG TAB PO SCH (08:51)
[2016-08-19] MEDS: SALMETEROL/FLUTICASONE 250/50 INHA INH SCH (08:51)
[2016-08-19] MEDS: DOCUSATE SODIUM 100 MG CAP PO SCH (08:51)
[2016-08-19] MEDS: SERTRALINE 100 MG TAB PO SCH (08:51)
[2016-08-19] MEDS: TIOTROPIUM 18 MCG CAPSULE INHA DEV INH SCH (08:51)
[2016-08-19] MEDS: METOPROLOL (XL) 25 MG TAB PO SCH (08:52)
[2016-08-19] MEDS: FUROSEMIDE 40 MG TAB PO SCH (08:52)
[2016-08-19] MEDS: FERROUS SULFATE (EC) 325 MG TAB PO SCH ×3 (08:52→17:00)
[2016-08-19] MEDS: SPIRONOLACTONE 25 MG TAB PO SCH (08:52)
[2016-08-19] MEDS: HEPARIN 5,000 UNIT/0.5 ML VIAL SC SCH (09:04)
--- NOTE | 2016-08-19 13:20 | PDOCDIS ---
Discharge Instructions DIAGNOSIS Discharge Diagnosis: Congestive cardiac failure CONDITION Patient Condition: Good HOME CARE INSTRUCTIONS: Diet Instructions: Low Fat /Cholesterol ACTIVITY: Activity Restrictions: No Restrictions FOLLOW UP/APPOINTMENTS Appointments Primary care [address] Inman [address] Calderon 3 weeks. TONO CALDERON MD, [facility] August 19, 2016 13:20
[2016-08-19] MEDS ORDERED: TIOT18CA INH (13:22)
[2016-08-19] MEDS ORDERED: SPIR25TA PO (13:22)
--- NOTE | 2016-08-19 16:02 | CONS ---
Date/Time of Note Date/Time of Note DATE: 08/19/16 TIME: 15:59 Assessment/Plan Assessment/Plan Additional Assessment/Plan 1. Lower extremity edema, assess for congestive heart failure.-improving with lasix diuresis - BETTER now 2. Shortness of breath, assess for congestive heart failure - improved with diuresis 3. Coronary artery disease, nonobstructive by catheterization in June 2016. 4. History of congestive heart failure with preserved left ventricular ejection fraction by echo June 2016. Thus diastolic acute on chronic - betternow. 5. Psychiatric disorder. 6. Hypothyroidism. 7.COPD-ongoing tobacco intake - con't to adjust Rx. Consultation Date/Type/Reason Admit Date/Time Aug 16, 2016 at 18:13 Initial Consult Date Type of Consultation: Cardiology Referring Provider: KASIA PAL MD 24 HR Interval Summary Free Text/Dictation NO acute change - BP stable - con't to adjust therapy. ROS: No fever, no chills, no nausea, no vomiting, no diarrhea/constipation No recent weight changes No chest pain, no PND, no orthopnea No dizziness, blurred vision No thirst, no heat or cold intolerance Exam/Review of Systems Vital Signs Vitals Vital Signs Date Time Temp Pulse Resp B/P Pulse Ox O2 Delivery O2 Flow Rate FiO2 08/19/16 12:12 85 08/19/16 12:10 98.3 19 118/56 93 08/18/16 21:00 Nasal Cannula 2.0 Intake and Output 08/18/16 08/18/16 08/19/16 15:00 23:00 07:00 Intake Total 650 ml 1200 ml 500 ml Balance 650 ml 1200 ml 500 ml Exam General: WN/WD/NAD, AOx 2 HEENT: Unicetric/atraumatic/EOMI (follow commands) NECK: JVD elevated, no thyromegaly Lymph: no lymphadenopathy HEART: regular with no S3, II/ systolic murmur at apex LUNGS: Coarse sounds ABD: soft, NT, ND, +BS : Intact Neuro: non focal SKIN: chronic changes EXT: trace edema Results Result Diagram: 08/19/16 0608/19/16 06 Results 24 hrs Laboratory Tests Test 08/19/16 06:05 White Blood Count 6.2 # Red Blood Count 4.43 Hemoglobin 11.7 L Hematocrit 38.4 Mean Corpuscular Volume 86.7 Mean Corpuscular Hemoglobin 26.4 L Mean Corpuscular Hemoglobin Concent 30.5 L Red Cell Distribution Width 17.2 H Platelet Count 357 Mean Platelet Volume 9.9 Neutrophils % 51.1 Lymphocytes % 36.4 Monocytes % 10.4 Eosinophils % 1.4 Basophils % 0.5 Nucleated Red Blood Cells % 0.0 Neutrophils # 3.2 Lymphocytes # 2.3 Monocytes # 0.7 Eosinophils # 0.1 Basophils # 0.0 Nucleated Red Blood Cells # 0.0 Sodium Level 142 Potassium Level 3.9 Chloride Level 109 Carbon Dioxide Level 30 Anion Gap 7 L Blood Urea Nitrogen 22 H Creatinine 0.69 Glucose Level 171 Calcium Level 8.6 Phosphorus Level 3.9 Magnesium Level 2.0 Medications Medications Current Medications Hydralazine HCl (Apresoline) 10 mg Q4H PRN IV ELEVATED BLOOD PRESSURE>150; Start 08/17/16 at 00:30 Diclofenac Sodium (Voltaren) 75 mg BID PO Last administered on 08/19/16 08:51; Admin Dose 75 MG; Start 08/17/16 at 21:00 Ferrous Sulfate (Ferrous Sulfate (Ec)) 325 mg QID PO Last administered on 08:52; Admin Dose 325 MG; Start 08/17/16 at 13:00 Quetiapine Fumarate (Seroquel) 100 mg HS PO Last administered on 08/18/16 20:55 ; Admin Dose 100 MG; Start 08/17/16 at 21:00 Sertraline HCl (Zoloft) 200 mg DAILY PO Last administered on 08/19/16 08:51; Admin Dose 200 MG; Start 08/18/16 at 09:00 Pantoprazole (Protonix Tab) 40 mg DAILY@06 PO Last administered on 08/19/16 06: 23; Admin Dose 40 MG; Start 08/18/16 at 06:00 Furosemide (Lasix) 40 mg DAILY PO Last administered on 08/19/16 08:52; Admin Dose 40 MG; Start 08/18/16 at 09:00 Spironolactone (Aldactone) 25 mg DAILY PO Last administered on 08/19/16 08:52; Admin Dose 25 MG; Start 08/17/16 at 10:00 Salmeterol Xinafoate/ Fluticasone (Advair 250/50 Diskus) 1 inh BID INH Last administered on 08/19/16 08:51; Admin Dose 1 INH; Start 08/17/16 at 10:00 Tiotropium [place] (Spiriva) 1 inh DAILY INH Last administered on 08/19/16 08: 51; Admin Dose 1 INH; Start 08/17/16 at 10:00 Heparin Sodium (Porcine) (Heparin (5000 Units/0.5 ml)) 5,000 unit BID SC Last administered on 08/19/16 09:04; Admin Dose 5,000 UNIT; Start 08/17/16 at 10:00 Atorvastatin [place] (Lipitor) 40 mg HS PO Last administered on 08/18/16 20:55 ; Admin Dose 40 MG; Start 08/17/16 at 21:00 Metoprolol Succinate (Toprol Xl) 25 mg DAILY PO Last administered on 08/19/16 08:52; Admin Dose 25 MG; Start 08/17/16 at 10:30 Alprazolam (Xanax) 0.5 mg HS PRN PO ANXIETY Last administered on 08/17/16 21: 45; Admin Dose 0.5 MG; Start 08/17/16 at 22:00 Docusate Sodium (Colace) 100 mg BID PO Last administered on 08/19/16 08:51; Admin Dose 100 MG; Start 08/18/16 at 12:00 CRIS STALLWORTH MD August 19, 2016 16:01
--- NOTE | 2016-08-19 18:17 | DS ---
DATE OF ADMISSION: 08/16/2016 DATE OF DISCHARGE: 08/19/2016 DISCHARGE DIAGNOSES: Congestive cardiac failure. HOSPITAL COURSE: This is a pleasant 61-year-old lady originally admitted with increasing shortness of breath, lower extremity edema, history of CHF with preserved ejection fraction, nonobstructive co ronary artery disease with catheterization in June of this year and a history of COPD with continue d tobacco use. Patient was found to be in mild congestive cardiac failure on this admission, had an echocardiogram which was performed by Dr. Inman which showed preserved ejection fraction with mil d diastolic dysfunction. Patient responded well to intravenous Lasix and Aldactone, switched to p.o . Lasix and subsequently stable for discharge. 1. She will follow up with me as a pulmonary outpatient appointment with smoking cessation and magali p of possible sleep apnea. 2. Follow up with Dr. Bg Inman, cardiology. 3. Follow up with primary care physician. DISCHARGE MEDICATIONS: Include: 1. Advair 250/50 one inhaler b.i.d. 2. Spiriva inhaler once daily. 3. Lasix 40 mg p.o. daily. 4. Levothyroxine 125 mcg p.o. daily. 5. Sertraline 200 mg p.o. daily. 6. Diclofenac p.r.n. 7. Seroquel 100 mg p.o. daily. 8. Metoprolol 25 mg p.o. daily. 9. Spironolactone 25 mg p.o. daily. DIET: Two grams sodium, low fat. CONDITION ON DISCHARGE: Stable. Dictated By: TONO KILGORE/MINOR Conf#: [id number] DID#: [id number]
== END 2016-08-19 18:39 | disposition home or self-care (01) ==
LOC: E/R 14:24 → INTOOBSV 18:13 → MS4 18:13 → UNDOADMIN 18:13
PROVIDERS: ADMIT Internal Medicine; ATTEND Internal Medicine
DX: I50.9 Heart failure, unspecified (principal); I25.10 Atherosclerotic heart disease of native coronary artery without angina pectoris; E03.9 Hypothyroidism, unspecified; J44.9 Chronic obstructive pulmonary disease, unspecified; F99 Mental disorder, not otherwise specified
CPT/HCPCS: 36415; 71010; 80048; 80053; 83735; 83880; 84100; 84484; 85025; 93005; 93970; 96372; 96374; 99285; G0378; J1644; J1940

== ENCOUNTER 2017-09-04 21:16 | Inpatient (IN) | END 2017-09-17 12:15 | disposition home health service (06) | DRG 329 ==

== ENCOUNTER 2018-01-11 22:59 | Emergency (ER) | END 2018-01-11 23:46 | disposition left against medical advice (07) ==

== ENCOUNTER → 2018-01-12 | Outpatient (CLI) | END | disposition home or self-care (01) ==

== ENCOUNTER 2018-07-03 12:53 | Emergency (ER) | payer MEDICARE, OTHER ==
[~2018-07-03] VITALS: Ht 170.2 cm; Wt 92.7 kg
[~2018-07-03 12:53] MED LIST changes: +ADV25050 INHALATION; -ALBU2.5V3 NEB; -ASPI-799 PO; -CALC600T11 PO; -CARSR60 PO; -CEFT1FRO2 IV; +CHOL100062 PO; +DICL75TA2 PO; +DONE5TAB46 PO; +ENAL20TA PO; -GABA300C16 PO; -LEVO175T6 PO; +LEVO200T6 PO; -LUN2 PO; +NICO-546 TRANSDERM; +OMEP40CA6 PO; -PANT40TA4 PO; +POTA-57 PO; -QUET100T32 PO; +SPIR25TA PO; -SYN1 PO; +TIOT18CA INH
[2018-07-03 13:04] VITALS: Ht 170.2 cm; Wt 92.7 kg
[2018-07-03] MEDS ORDERED: IPRATROPIUM (NEB) 0.5 MG/2.5 ML AMP INH STA (13:20)
[2018-07-03] MEDS ORDERED: MAGNESIUM SULFATE 2 GM/50 ML 50 ML IVPB STA (13:20)
[2018-07-03] MEDS ORDERED: ALBUTEROL 0.5% (NEB) 2.5 MG/0.5 ML AMP INH STA (13:20)
--- NOTE | 2018-07-03 13:37 | ERD ---
ER Documentation Chief Complaint Chief Complaint cough/congestion x 2 days with chest pressure, HPI 63-year-old female history of smoking, COPD, colon cancer status post resection now on chemotherapy last in April taking a break. Patient presents with 24 hours of symptoms including cough with hacking cough that is minimally prod uctive. The patient has chest wall pain with coughing. She denies any fevers or chills. No pleuritic pain, no calf swelling, no history of DVT. She denies any chest pressure or exertional symptoms. This is despite what was noted in triage. ROS All systems reviewed and are negative except as per history of present illness. Medications Home Meds Active Scripts Levofloxacin* (Levaquin*) 750 Mg Tablet, 750 MG PO DAILY for 5 Days, TAB Prov:BARRY LAFLEUR MD 07/03/18 Dexamethasone* (Decadron*) 4 Mg Tab, 8 MG PO ONCE for 1 Day, TAB Prov:BARRY LAFLEUR MD 07/03/18 Albuterol Sulfate* (Ventolin HFA*) 18 Gm Hfa.aer.ad, 2 PUFF INHALATION Q4H, #1 INHALER Prov:BARRY LAFLEUR MD 07/03/18 Reported Medications Famotidine* (Famotidine*) 20 Mg Tablet, 20 MG PO BID, #60 TAB 07/03/18 Docusate Sodium* (Dok*) 100 Mg Tablet, 100 MG PO BID, #60 CAP 07/03/18 Gabapentin* (Gabapentin*) 600 Mg Tablet, 600 MG PO TID, #90 TAB 07/03/18 Potassium Chloride* (K-Dur*) 10 Meq Tab.prt.sr, 10 MEQ PO DAILY, TAB 07/03/18 Levothyroxine Sodium* (Levoxyl*) 200 Mcg Tablet, 200 MCG PO BEFORE BREAKFAST, # 30 TAB 07/03/18 Furosemide* (Lasix*) 20 Mg Tablet, 20 MG PO DAILY, TAB 07/03/18 Enalapril Maleate* (Enalapril Maleate*) 10 Mg Tablet, 10 MG PO DAILY, TAB 07/03/18 Donepezil* (Donepezil*) 5 Mg Tablet, 5 MG PO DAILY, #30 TAB 07/03/18 Cholecalciferol* (Vitamin D3*) 1,000 Unit Tablet, 1000 UNIT PO DAILY, TAB 07/03/18 Atorvastatin* (Atorvastatin*) 40 Mg Tablet, 40 MG PO QHS, #30 TAB 07/03/18 Alprazolam* (Xanax*) 2 Mg Tablet, 2 MG PO BID PRN for ANXIETY, TAB 07/03/18 Discontinued Reported Medications Levothyroxine Sodium* (Levothyroxine Sodium*) 200 Mcg Tablet, 200 MCG PO BEFORE BREAKFAST, #30 TAB 09/03/17 Donepezil* (Aricept*) 5 Mg Tablet, 5 MG PO DAILY, #30 09/03/17 Potassium Chloride* (Klor-Con*) 20 Meq Tabsr, 10 MEQ PO DAILY, TAB.SA 09/03/17 Enalapril Maleate* (Enalapril Maleate*) 20 Mg Tablet, 20 MG PO DAILY, TAB 09/03/17 Sertraline Hcl* (Sertraline Hcl*) 100 Mg Tablet, 100 MG PO DAILY, #30 TAB 09/03/17 Cholecalciferol* (Vitamin D3*) 1,000 Unit Tablet, 1000 UNIT PO DAILY, TAB 08/17/16 Salmeterol Xinaf/Fluticasone* (Advair*) 250-50 Diskus Inhaler, 1 INH INHALATION BID, #1 INHALER 08/17/16 Diclofenac Sodium* (Diclofenac Sodium*) 75 Mg Tablet.dr, 75 MG PO BID, #60 TAB 08/16/16 Omeprazole* (Omeprazole*) 40 Mg Capsule.dr, 40 MG PO AC BREAKFAST, #30 CAP 08/16/16 Ferrous Sulfate* (Ferrous Sulfate*) 325 Mg Tabec, 325 MG PO QID, TAB 08/16/16 Alprazolam* (Alprazolam*) 0.5 Mg Tablet, 0.5 MG PO QHS PRN for ANXIETY, TAB 06/24/16 Isosorbide Dinitrate* (Isosorbide Dinitrate*) 20 Mg Tablet, 20 MG PO TID, TAB 06/24/16 Furosemide* (Furosemide*) 20 Mg Tablet, 20 MG PO DAILY, #60 TAB 06/24/16 Atorvastatin* (Atorvastatin*) 40 Mg Tablet, 40 MG PO QHS, #30 TAB 06/24/16 Discontinued Scripts Nicotine* (Nicotine* Patch) 21 mg/day Patch, 1 PATCH TRANSDERM DAILY for 30 Days, #30 EA Prov:MICAELA DELGADO MD 09/17/17 Tiotropium [place]* (Spiriva*) 18 Mcg Cap.w.dev, 1 INH INH DAILY for 60 Days Prov:TONO CALDERON MD, [facility] 08/19/16 Spironolactone* (Aldactone*) 25 Mg Tablet, 25 MG PO DAILY for 60 Days, TAB Prov:TONO CALDERON MD, [facility] 08/19/16 Allergies Allergies: Coded Allergies: No Known Allergy (Unverified , 07/03/18) PMhx/Soc History of Surgery: No Anesthesia Reaction: No Hx Neurological Disorder: No Hx Respiratory Disorders: Yes (COPD) Hx Cardiac Disorders: Yes (HTN) Hx Psychiatric Problems: No Hx Miscellaneous Medical Probl: Yes (see PT note) Hx Alcohol Use: No Hx Substance Use: No Hx Tobacco Use: Yes FmHx Family History: No diabetes Physical Exam Vitals Vital Signs Date Temp Pulse Resp B/P (MAP) Pulse Ox O2 O2 Flow FiO2 Time Delivery Rate 07/03/18 97.7 75 16 122/58 100 Room Air 15:45 (79) 07/03/18 Nasal 2 14:09 Cannula 07/03/18 99.5 81 22 207/97 96 13:04 (133) Physical Exam General: Hacking cough. No distress Head: Normocephalic, atraumatic. Eyes: Pupils equally reactive, EOM intact ENT: Moist mucous membranes Neck: Supple, no lymphadenopathy Respiratory: Scant wheezes or rhonchi diffusely but good aeration Cardiovascular: RRR, no murmurs, rubs, or gallops Abdominal: Soft, non-tender, non-distended, no peritoneal signs : Deferred MSK: No edema, no unilateral swelling, 5/5 strength Neurologic: Alert and oriented, moving all extremities, normal speech, no focal weakness, no cerebellar signs Skin: No rash Psych: Normal mood Result Diagram: 07/03/18 1329 07/03/18 1328 Results 24 hrs Laboratory Tests Test 07/03/18 13:28 07/03/18 13:29 Sodium Level 140 mmol/L Potassium Level 4.0 mmol/L Chloride Level 104 mmol/L Carbon Dioxide Level 29 mmol/L Anion Gap 7 Blood Urea Nitrogen 16 mg/dl Creatinine 0.75 mg/dl Est Glomerular Filtrat Rate mL/min > 60 mL/min Glucose Level 97 mg/dl Calcium Level 9.5 mg/dl Troponin I < 0.012 ng/ml White Blood Count 11.1 10^3/ul Red Blood Count 5.01 10^6/ul Hemoglobin 14.7 g/dl Hematocrit 46.3 % Mean Corpuscular Volume 92.4 fl Mean Corpuscular Hemoglobin 29.3 pg Mean Corpuscular Hemoglobin Concent 31.7 g/dl Red Cell Distribution Width 15.5 % Platelet Count 273 10^3/UL Mean Platelet Volume 8.7 fl Immature Granulocytes % 0.400 % Neutrophils % 64.2 % Lymphocytes % 27.0 % Monocytes % 5.7 % Eosinophils % 2.3 % Basophils % 0.4 % Nucleated Red Blood Cells % 0.0 /100WBC Immature Granulocytes # 0.040 10^3/ul Neutrophils # 7.1 10^3/ul Lymphocytes # 3.0 10^3/ul Monocytes # 0.6 10^3/ul Eosinophils # 0.3 10^3/ul Basophils # 0.0 10^3/ul Nucleated Red Blood Cells # 0.0 10^3/ul Current Medications Medications Dose Sig/Joyce Start Time Status Last (Trade) Ordered Route PRN Stop Time Admin Dose Reason Admin Albuterol 10 mg ONCE STAT 07/03/18 DC 07/03/18 (Proventil INH 13:20 13:52 0.5% (Neb)) 07/03/18 13:24 Ipratropium 1 mg ONCE STAT 07/03/18 DC 07/03/18 [place] INH 13:20 13:51 (Atrovent 07/03/18 13:24 0.02% (Neb)) Magnesium 50 ml @ 25 ONCE STAT 07/03/18 DC 07/03/18 Sulfate mls/hr IVPB 13:20 13:54 07/03/18 15:19 10 mg ONCE ONCE 07/03/18 DC 07/03/18 Dexamethasone IV 14:00 13:54 (Decadron) 07/03/18 14:01 Procedures/MDM EKG, MONITORS, & DIAGNOSTIC IMAGING: EKG: I reviewed and interpreted a 12-lead EKG. Rhythm: Normal sinus rhythm ST Changes: No contiguous ST segment elevations T waves: No contiguous T wave inversions Impression: No evidence of acute cardiac ischemia Chest x-ray: Chest x-ray: I reviewed and interpreted a 1 view of the chest Mediastinum: No enlargement Cardiac silhouette: No cardiomegaly Airspace: Clear lung wilkins bilaterally without evidence of pneumothorax Bones: No evidence of fracture LAB INTERPRETATION: I reviewed the laboratory testing and it shows normal white count, negative troponin MEDICAL DECISION MAKING: The patient presents with 24 hours of cough and congestion. Her clinical exam and history is very consistent with COPD with exacerbation. The patient does describe chest pain but is very consistent with chest wall pain secondary to coughing. She has no significant pleuritic discomfort and no evidence of DVT. All the patient is at risk for DVT and pulmonary embolism she has a better alternative diagnosis at this time and does not warrant CTPA or d-dimer. Low concern for acute coronary syndrome for similar reasoning as the patient has a better alternative diagnosis and no exertional symptoms. Patient will benefit from breathing treatment, steroids, magnesium. Screening for pneumonia, ACS would be appropriate. ER COURSE: * Patient given breathing treatment, Decadron, magnesium. I discussed Decadron dosing with her primary oncologist Dr. Penn who agrees and states is appropriate. * The patient is much improved. Oxygen saturations and vital signs have improved. No evidence of pneumonia. The patient can be safely discharged with treatment of steroids, breathing treatment and Levaquin for COPD exacerbation. I discussed outpatient management with Dr. Penn who agrees. CONSULTATION: None DISPOSITION PLAN: The patient does not have an identifiable emergent medical condition that warrants inpatient hospitalization at this time. The patient is deemed safe for discharge with outpatient follow-up. We discussed follow up with the patient's primary care doctor within 24 to 48 hours as needed. We also discussed return to the emergency room for worsening symptoms or worsening condition. Outpatient referral: None required Discharge Medications: Levaquin, Ventolin, Decadron dose to be given tomorrow Departure Diagnosis: Primary Impression: COPD (chronic obstructive pulmonary disease) COPD type: COPD with acute exacerbation Qualified Codes: J44.1 - Chronic obstructive pulmonary disease with (acute) exacerbation Condition: BARRY Mcneill MD Jul 03, 2018 13:37
[2018-07-03] MEDS ORDERED: ALPR2TAB PO (13:59)
[2018-07-03] MEDS ORDERED: DEXAMETHASONE 10 MG/ML 1 ML INJ IV ONE (14:00)
[2018-07-03] MEDS ORDERED: ATOR40TA68 PO (14:00)
[2018-07-03] MEDS ORDERED: CHOL100062 PO (14:00)
[2018-07-03] MEDS ORDERED: DONE5TAB7 PO (14:01)
[2018-07-03] MEDS ORDERED: ENAL10TA PO (14:02)
[2018-07-03] MEDS ORDERED: FURO-110 PO (14:02)
[2018-07-03] MEDS ORDERED: LEVO200T45 PO (14:03)
[2018-07-03] MEDS ORDERED: POTA10TA37 PO (14:04)
[2018-07-03] MEDS ORDERED: DOCU100T PO (14:05)
[2018-07-03] MEDS ORDERED: FAMO20TA18 PO (14:05)
[2018-07-03] MEDS ORDERED: GABA-526 PO (14:05)
[2018-07-03] MEDS ORDERED: LEVO750T25 PO (15:42)
[2018-07-03] MEDS ORDERED: DEC4 PO (15:42)
[2018-07-03] MEDS ORDERED: ALBU18HF INHALATION (15:42)
[2018-07-03 15:45] VITALS: BP 122/58; PULSE 75; RESP 16
== END 2018-07-03 15:53 | disposition home or self-care (01) ==
LOC: E/R 12:53
DX: J44.1 Chronic obstructive pulmonary disease with (acute) exacerbation (principal); I10 Essential (primary) hypertension; C18.9 Malignant neoplasm of colon, unspecified; Z87.891 Personal history of nicotine dependence
CPT/HCPCS: 71045; 80048; 84484; 85025; 87400; 93005; 94644; 96374; 96375; 99285; J1100; J3475